=== PATIENT | male | born 1975 | race Caucasian/White ===

== ENCOUNTER 2018-06-27 13:29 | Emergency (ER) | payer BC ==
[~2018-06-27] VITALS: Ht 177.8 cm; Wt 107.5 kg
[~2018-06-27 13:29] MED LIST: XANAX0.5 MG PO
--- OUTSIDE RECORDS SUMMARY | 2018-06-27 13:32 | XMS REPORT | Continuity of Care Document ---
Author Author [facility] Interface Address Unknown Phone Unavailable Problems Problem Status Onset Date Classification Date Reported Comments Source UNK Active 11/11/2015 [facility] UNK Active 11/11/2015 [facility] 780.60 - FEVER NOS Active 07/14/2011 ANAIS Madden Irregular heartbeat Active Problem 12/25/2015 [facility] Renal stone Active Problem 12/25/2015 [facility] Anxiety and depression Active Problem 12/25/2015 [facility] N20.0 Active [facility] Medications Medication Details Route Status Patient Instructions Ordering Provider Order Date Source tramadol hydrochloride 50 MG Oral Tablet 50 mg=1 tab, PO, Q6H, PRN Pain, X 7 day, # 28 tab, 0 Refill(s) Active 11/27/2015 [facility] Naloxone 0.4 mg, Route: IVP, Q2MIN, Dosing Weight 104.591, kg, PRN Narcotic Reversal, Start date: 11/27/15 11:29:00 CDT, Duration: 8 doses or times, Stop date: Limited # of times Inactive 11/27/2015 [facility] Ondansetron 4 mg, Route: IVP, ONCE, Dosing Weight 104.591, kg, PRN Nausea & Vomiting, Start date: 11/27/15 11:29:00 CDT Inactive 11/27/2015 [facility] Fentanyl 25 microgram, Route: IV, Q10Min, Dosing Weight 104.591, kg, PRN Pain Score 6-10, Start date: 11/27/15 11:29:00 CDT, Duration: 30 day, Stop date: 12/27/15 10:28:00 [employer] Inactive 11/27/2015 [facility] Flumazenil 0.2 mg, Route: IVP, PRN, Dosing Weight 104.591, kg, PRN Benzodiazepine Reversal, Initial dose, Start date: 11/27/15 11:29:00 CDT, Duration: 30 day, Stop date: 12/27/15 10:28:00 [employer] Inactive 11/27/2015 [facility] Hydromorphone 0.5 mg, Route: IVP, Q5Min, Dosing Weight 104.591, kg, PRN Pain Score 7-10, Start date: 11/27/15 11:29:00 CDT, Duration: 4 doses or times, Stop date: Limited # of times Inactive 11/27/2015 [facility] Morphine 4 mg, Route: IVP, Q5Min, Dosing Weight 104.591, kg, PRN Pain Score 7-10, Start date: 11/27/15 11:29:00 CDT, Duration: 3 doses or times, Stop date: Limited # of times Inactive 11/27/2015 [facility] Oxycodone 10 mg, Route: PO, Drug form: TAB, Q4H, Dosing Weight 104.591, kg, PRN Pain Score 7-10, Start date: 11/27/15 11:29:00 CDT, Duration: 30 day, Stop date: 12/27/15 11:28:00 [employer] Inactive 11/27/2015 [facility] Tamsulosin hydrochloride 0.4 MG Oral Capsule [Flomax] 0.4 mg=1 cap, PO, Daily, # 7 cap, 0 Refill(s) Active 11/27/2015 [facility] Ciprofloxacin 500 MG Oral Tablet [Cipro] 500 mg=1 tab, PO, Q12H, X 3 day, # 6 tab, 0 Refill(s) Active 11/27/2015 [facility] fentaNYL (ANES) Route: IV, Drug form: INJ, ONCE, Stop date: 11/27/15 10:33:00 CDT Inactive 11/27/2015 [facility] midazolam (ANES) Route: IV, Drug form: SOLN, ONCE, Stop date: 11/27/15 10:33:00 CDT Inactive 11/27/2015 [facility] dexamethasone (ANES) Route: IV, Drug form: INJ, ONCE, Stop date: 11/27/15 10:33:00 CDT Inactive 11/27/2015 [facility] ondansetron (ANES) Route: IV, Drug form: INJ, ONCE, Stop date: 11/27/15 10:33:00 CDT Inactive 11/27/2015 [facility] acetaminophen (ANES) Route: IV, Drug form: INJ, ONCE, Stop date: 11/27/15 10:33:00 CDT Inactive 11/27/2015 [facility] lidocaine (ANES) Route: IV, Drug form: INJ, ONCE, Stop date: 11/27/15 10:33:00 CDT Inactive 11/27/2015 [facility] propofol (ANES) Route: IV, Drug form: INJ, ONCE, Stop date: 11/27/15 10:33:00 CDT Inactive 11/27/2015 [facility] LR 1000 mL INJ (ANES) Route: IV, Total Volume: 1,000, Start date: 11/27/15 9:46:00 CDT, Stop date: 11/27/15 10:46:00 CDT Inactive 11/27/2015 [facility] Calcium Chloride 0.0014 MEQ/ML / Potassium Chloride 0.004 MEQ/ML / Sodium Chloride 0.103 MEQ/ML / Sodium Lactate 0.028 MEQ/ML Injectable Solution 1,000 mL, Rate: 25 ml/hr, Infuse over: 40 hr, Route: IV, Dosing Weight 104.591 kg, Total Volume: 1,000, Start date: 11/27/15 9:03:00 CDT, Duration: 30 day, Stop date: 12/27/15 9:02:00 [employer] Inactive 11/27/2015 [facility] Alprazolam 2 MG Oral Tablet [Xanax] 2 mg=1 tab, PO, Daily, 0 Refill(s) Active 11/19/2015 [facility] Allergies, Adverse Reactions, Alerts Substance Category Reaction Severity Reaction type Status Date Reported Comments Source Immunizations Immunization Date Given Site Status Last Updated Comments Source Results Order Name Results Value Reference Range Date Interpretation Comments Source Abdomen AP DX Abdomen AP DX KUB: There is a 2 mm calyceal stone overlying the lower pole the left kidney. There is no other visible urinary tract calculus. Phleboliths in the pelvis are noted without change compared to 11/27/2015. The abdominal gas pattern is normal. There are no significant osseous abnormalities. There is no other significant change. [id number] 12/22/2015 - - Read by: Luisito Barraza MD Dictated Date/time: 12/22/15 15:55 Electronically Signed by: Luisito Barraza MD 12/22/15 15:56 FINAL REPORT [facility] Abdomen AP DX Abdomen AP DX Patient Name: LUISITO FONTENOT : 1975; Age: 39 years y/o Male MR: [id number] Study: Abdomen AP DX 11/27/2015 9:00 AM CDT Ordering Physician: Phi Fry MD Clinical Indication: Flank Pain; Comparison: None Abdomen one view Punctate calcification overlies left renal lower pole shadow. There appear to be phleboliths within the lower pelvis bilaterally. No other pathologic calcifications are demonstrated radiographically. Nonobstructive bowel gas pattern. Generous amount of colonic stool. No significant osseous abnormality. IMPRESSION: Visualization of punctate calculus overlying the left kidney. SL: [id number] 11/27/2015 - - Read by: Roni Matta MD Dictated Date/time: 11/27/15 08:12 Electronically Signed by: Roni Matta MD 11/27/15 08:13 FINAL REPORT [facility] CHEM PANEL eGFR 106 mL/min/1.73m2 11/19/2015 Result Comment: The eGFR is calculated using the CKD-EPI formula. In most young, healthy individuals the eGFR will be >90 mL/min/1.73m2. The eGFR declines with age. An eGFR of 60-89 may be normal in some populations, particularly the elderly, for whom the CKD-EPI formula has not been extensively validated. Use of the eGFR is not recommended in the following populations: Individuals with unstable creatinine concentrations, including patients and those with serious co-morbid conditions. Patients with extremes in muscle mass or diet. The data above are obtained from the National Kidney Disease Education Program (NKDEP) which additionally recommends that when the eGFR is used in patients with extremes of body mass index for purposes of drug dosing, the eGFR should be multiplied by the estimated BMI. [facility] CHEM PANEL Creatinine Lvl 0.91 mg/dL 0.50 - 1.40 11/19/2015 [facility] CHEM PANEL CO2 28 meq/L 24 - 32 11/19/2015 [facility] CHEM PANEL Sodium Lvl 138 meq/L 135 - 145 11/19/2015 [facility] CHEM PANEL Calcium Lvl 8.9 mg/dL 8.5 - 10.5 11/19/2015 [facility] CHEM PANEL Potassium Lvl 4.3 meq/L 3.5 - 5.1 11/19/2015 [facility] CHEM PANEL Chloride Lvl 103 meq/L 95 - 109 11/19/2015 [facility] CHEM PANEL BUN 15 mg/dL 7 - 11/19/2015 [facility] CHEM PANEL Glucose Lvl 89 mg/dL 70 - 99 11/19/2015 [facility] CHEM PANEL AGAP 11.3 meq/L 10.0 - 20.0 11/19/2015 [facility] HEMATOLOGY Monocytes # 0.7 K/CMM 0.0 - 0.8 11/19/2015 [facility] HEMATOLOGY Lymphocytes # 3.0 K/CMM 1.0 - 5.5 11/19/2015 [facility] HEMATOLOGY Segs-Bands # 4.3 K/CMM 1.5 - 8.1 11/19/2015 [facility] HEMATOLOGY Basophils 0.3 % 0.0 - 1.0 11/19/2015 [facility] HEMATOLOGY Eosinophils # 0.1 K/CMM 0.0 - 0.5 11/19/2015 [facility] HEMATOLOGY Monocytes 8.8 % 2.0 - 12.0 11/19/2015 [facility] HEMATOLOGY Eosinophils 1.0 % 0.0 - 4.0 11/19/2015 [facility] HEMATOLOGY Lymphocytes 37.0 % 20.0 - 40.0 11/19/2015 [facility] HEMATOLOGY Segs 52.9 % 45.0 - 75.0 11/19/2015 [facility] HEMATOLOGY PT 13.1 s 12.0 - 14.7 11/19/2015 [facility] HEMATOLOGY INR 0.97 0.85 - 1.17 11/19/2015 [facility] HEMATOLOGY PTT 34.5 s 22.9 - 35.8 11/19/2015 [facility] HEMATOLOGY MCV 90.6 fL 80.0 - 94.0 11/19/2015 [facility] HEMATOLOGY Hct 47.4 % 42.0 - 54.0 11/19/2015 [facility] HEMATOLOGY Hgb 16.0 g/dL 14.0 - 18.0 11/19/2015 [facility] HEMATOLOGY RBC 5.23 M/CMM 4.70 - 6.10 11/19/2015 [facility] HEMATOLOGY WBC 8.0 K/CMM 3.7 - 10.4 11/19/2015 [facility] HEMATOLOGY MPV 8.8 fL 7.4 - 10.4 11/19/2015 [facility] HEMATOLOGY Platelet 218 K/CMM 133 - 450 11/19/2015 [facility] HEMATOLOGY RDW 12.8 % 11.5 - 14.5 11/19/2015 [facility] HEMATOLOGY MCHC 33.8 g/dL 32.0 - 36.0 11/19/2015 [facility] HEMATOLOGY MCH 30.7 pg 27.0 - 31.0 11/19/2015 [facility] URINE AND STOOL UA Urobilinogen <=1.0 mg/dL 0.1 - 1.0 11/19/2015 [facility] URINE AND STOOL UA Blood Negative (11/19/15 10:09 AM) Negative 11/19/2015 [facility] URINE AND STOOL UA Bili Negative *NA* (11/19/15 10:09 AM) Negative 11/19/2015 [facility] URINE AND STOOL UA Glucose Negative mg/dL Negative mg/dL 11/19/2015 [facility] URINE AND STOOL UA Protein Negative mg/dL Negative mg/dL 11/19/2015 [facility] URINE AND STOOL UA Ketones Negative mg/dL Negative mg/dL 11/19/2015 [facility] URINE AND STOOL UA Mucus Few /LPF None Seen /LPF 11/19/2015 [facility] URINE AND STOOL UA RBC 1 /HPF 0 - 2 11/19/2015 [facility] URINE AND STOOL UA WBC null 0 - 5 11/19/2015 [facility] URINE AND STOOL UA Nitrite Negative (11/19/15 10:09 AM) Negative 11/19/2015 [facility] URINE AND STOOL UA Leuk Est Negative (11/19/15 10:09 AM) Negative 11/19/2015 [facility] URINE AND STOOL UA Sq Epi Occasional /LPF Few /LPF 11/19/2015 [facility] URINE AND STOOL UA pH 5.0 5.0 - 8.0 11/19/2015 [facility] URINE AND STOOL UA Spec Grav 1.020 <=1.030 11/19/2015 [facility] URINE AND STOOL UA Turbidity Clear (11/19/15 10:09 AM) Clear 11/19/2015 [facility] URINE AND STOOL UA Color Yellow *NA* (11/19/15 10:09 AM) Yellow 11/19/2015 [facility] Vital Signs Vital Sign Value Date Comments Source Systolic (mm Hg) 127 11/27/2015 [facility] Diastolic (mm Hg) 78 11/27/2015 [facility] Systolic (mm Hg) 119 11/27/2015 [facility] Diastolic (mm Hg) 79 11/27/2015 [facility] Systolic (mm Hg) 125 11/27/2015 [facility] Diastolic (mm Hg) 81 11/27/2015 [facility] Respitory Rate 13 11/27/2015 [facility] Respitory Rate 16 11/27/2015 [facility] Respitory Rate 8 11/27/2015 [facility] BMI Calculated 33.08 11/19/2015 [facility] Weight 104.591 11/19/2015 [facility] Height 177.8 cm 11/19/2015 [facility] Heart Rate 55 11/19/2015 [facility] Temperature Oral (F) 98 F 11/19/2015 [facility] Encounters Location Location Details Encounter Type Encounter Number Reason For Visit Attending Provider ADM Date DC Date Status Source OD [id number] 780.60 - FEVER NOS LAST ANDREW 07/14/2011 Active ANAIS Madden [facility] Day Surgery [id number] Phi Fry 11/27/2015 11/27/2015 [facility] Outpatient [id number] Phi Lisandra 12/22/2015 12/23/2015 [facility] Procedures Procedure Code Date Perfomer Comments Source Vasectomy [id number] [facility]
--- OUTSIDE RECORDS SUMMARY | 2018-06-27 13:32 | XMS REPORT | Summary of Care ---
Author Author [facility] Organization [facility] Address Unknown Phone Unavailable Encounter HQ Kirtir_alhaji(FIN) [id number] Date(s): 12/22/15 - 12/22/15 [facility] [address] [place] [address]- Discharge Disposition: Home or Self Care Attending Physician: Phi Fry MD Vital Signs No data available for this section Problem List Condition Effective Dates Status Health Status Informant Irregular Active heartbeat(Confirmed) Renal Active stone(Confirmed) Anxiety and Active depression(Confirmed ) Allergies, Adverse Reactions, Alerts Substance Reaction Severity Status NKDA Active Medications No data available for this section Results No data available for this section Immunizations No data available for this section Procedures Procedure Date Related Diagnosis Body Site Vasectomy Social History Social History Type Response Alcohol Current, Frequency: 1-2 times per week. Smoking Status Current some day smoker; Type: Cigarettes; Exposure to Tobacco Smoke None; Cigarette Smoking Last 365 Days Yes; Reg Smoking Cessation Counseling No1 13-4 cigarrettes per week Assessment and Plan No data available for this section
--- OUTSIDE RECORDS SUMMARY | 2018-06-27 13:32 | XMS REPORT | Summary of Care ---
Author Author [facility] Organization [facility] Address Unknown Phone Unavailable Encounter JAYLEN Barajas(DESIRAE) [id number] Date(s): 11/27/15 - 11/27/15 [facility] [address] [place] [address]- [phone] Discharge Disposition: Home or Self Care Attending Physician: Phi Fry MD Referring Physician: Phi Fry MD Vital Signs 1 2 3 Most recent to oldest [Reference Range]: 177.8 cm (11/19/15 9:34 AM) Height 98 DegF (11/19/15 9:34 AM) Temperature Oral [96.4-99.1 DegF] 127/78 mmHg (11/27/15 12:30 PM) 119/79 mmHg (11/27/15 11:30 AM) 125/81 mmHg (11/27/15 11:15 AM) Blood Pressure [90-140/60-90 mmHg] 13 BRMIN *LOW* (11/27/15 11:15 AM) 16 BRMIN (11/27/15 11:00 AM) 8 BRMIN *LOW* (11/27/15 10:45 AM) Respiratory Rate [14-20 BRMIN] 55 bpm *LOW* (11/19/15 9:34 AM) Peripheral Pulse Rate [60-100 bpm] 104.591 kg (11/19/15 9:34 AM) Weight 33.08 m2 (11/19/15 9:34 AM) Body Mass Index Problem List Condition Effective Dates Status Health Status Informant Irregular Active heartbeat(Confirmed) Renal Active stone(Confirmed) Anxiety and Active depression(Confirmed ) Allergies, Adverse Reactions, Alerts Substance Reaction Severity Status NKDA Active Medications acetaminophen (ANES) Route: IV, Drug form: INJ, ONCE, Stop date: 11/27/15 10:33:00 CDT Start Date: 11/27/15 Stop Date: 11/27/15 Status: Completed ANES flumazenil 0.2 mg, Route: IVP, PRN, Dosing Weight 104.591, kg, PRN Benzodiazepine Reversal, Initial dose, Start date: 11/27/15 11:29:00 CDT, Duration: 30 day, Stop date: 02/25/15 10:28:00 [employer]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: 11/27/15 Stop Date: 11/27/15 Status: Discontinued ANES HYDROmorphone 0.5 mg, Route: IVP, Q5Min, Dosing Weight 104.591, kg, PRN Pain Score 7-10, Start date: 11/27/15 11:29:00 CDT, Duration: 4 doses or times, Stop date: Limited # of times Start Date: 11/27/15 Stop Date: 11/27/15 Status: Discontinued ANES morphine Sulfate 4 mg, Route: IVP, Q5Min, Dosing Weight 104.591, kg, PRN Pain Score 7-10, Start d ate: 11/27/15 11:29:00 CDT, Duration: 3 doses or times, Stop date: Limited # of times Start Date: 11/27/15 Stop Date: 11/27/15 Status: Discontinued ANES naloxone 0.4 mg, Route: IVP, Q2MIN, Dosing Weight 104.591, kg, PRN Narcotic Reversal, Sta rt date: 11/27/15 11:29:00 CDT, Duration: 8 doses or times, Stop date: Limited # of times Start Date: 11/27/15 Stop Date: 11/27/15 Status: Discontinued ANES ondansetron 4 mg, Route: IVP, ONCE, Dosing Weight 104.591, kg, PRN Nausea & Vomiting, Start date: 11/27/15 11:29:00 CDT Start Date: 11/27/15 Stop Date: 11/27/15 Status: Discontinued ANES oxyCODONE 10 mg, Route: PO, Drug form: TAB, Q4H, Dosing Weight 104.591, kg, PRN Pain Score 7-10, Start date: 11/27/15 11:29:00 CDT, Duration: 30 day, Stop date: 12/27/15 11:28:00 [employer]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: 11/27/15 Stop Date: 11/27/15 Status: Discontinued Cipro 500 mg oral tablet 500 mg=1 tab, PO, Q12H, X 3 day, # 6 tab, 0 Refill(s) Start Date: 11/27/15 Stop Date: 11/30/15 Status: Ordered dexamethasone (ANES) Route: IV, Drug form: INJ, ONCE, Stop date: 11/27/15 10:33:00 CDT Start Date: 11/27/15 Stop Date: 11/27/15 Status: Completed fentaNYL 25 microgram, Route: IV, Q10Min, Dosing Weight 104.591, kg, PRN Pain Score 6-10, Start date: 11/27/15 11:29:00 CDT, Duration: 30 day, Stop date: 12/27/15 10:28: 00 [employer]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: 11/27/15 Stop Date: 11/27/15 Status: Discontinued fentaNYL (ANES) Route: IV, Drug form: INJ, ONCE, Stop date: 11/27/15 10:33:00 CDT Start Date: 11/27/15 Stop Date: 11/27/15 Status: Completed Flomax 0.4 mg oral capsule 0.4 mg=1 cap, PO, Daily, # 7 cap, 0 Refill(s) Start Date: 11/27/15 Stop Date: 12/04/15 Status: Ordered Lactated Ringers Injection IV 1000 mL 1,000 mL, Rate: 25 ml/hr, Infuse over: 40 hr, Route: IV, Dosing Weight 104.591 k g, Total Volume: 1,000, Start date: 11/27/15 9:03:00 CDT, Duration: 30 day, Stop date: 12/27/15 9:02:00 [employer]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: 11/27/15 Stop Date: 11/27/15 Status: Discontinued lidocaine (ANES) Route: IV, Drug form: INJ, ONCE, Stop date: 11/27/15 10:33:00 CDT Start Date: 11/27/15 Stop Date: 11/27/15 Status: Completed LR 1000 mL INJ (ANES) Route: IV, Total Volume: 1,000, Start date: 11/27/15 9:46:00 CDT, Stop date: 09/04 10:46:00 CDT Start Date: 11/27/15 Stop Date: 11/27/15 Status: Completed midazolam (ANES) Route: IV, Drug form: SOLN, ONCE, Stop date: 11/27/15 10:33:00 CDT Start Date: 11/27/15 Stop Date: 11/27/15 Status: Completed ondansetron (ANES) Route: IV, Drug form: INJ, ONCE, Stop date: 11/27/15 10:33:00 CDT Start Date: 11/27/15 Stop Date: 11/27/15 Status: Completed propofol (ANES) Route: IV, Drug form: INJ, ONCE, Stop date: 11/27/15 10:33:00 CDT Start Date: 11/27/15 Stop Date: 11/27/15 Status: Completed tramadol 50 mg oral tablet 50 mg=1 tab, PO, Q6H, PRN Pain, X 7 day, # 28 tab, 0 Refill(s) Start Date: 11/27/15 Stop Date: 12/04/15 Status: Ordered Xanax 2 mg oral tablet 2 mg=1 tab, PO, Daily, 0 Refill(s) Start Date: 11/19/15 Status: Ordered Results ELECTROLYTES Most recent to 1 oldest [Reference Range]: Sodium Lvl [135-145 138 mEq/L mEq/L] (11/19/15 10:09 AM) Potassium Lvl 4.3 mEq/L [3.5-5.1 mEq/L] (11/19/15 10:09 AM) Chloride Lvl [95-109 103 mEq/L mEq/L] (11/19/15 10:09 AM) CO2 [24-32 mEq/L] 28 mEq/L (11/19/15 10:09 AM) AGAP [10.0-20.0 11.3 mEq/L mEq/L] (11/19/15 10:09 AM) CHEM PANEL Most recent to 1 oldest [Reference Range]: Creatinine Lvl 0.91 mg/dL [0.50-1.40 mg/dL] (11/19/15 10:09 AM) eGFR 106 mL/min/1.73m2 1 *NA* (11/19/15 10:09 AM) BUN [7-22 mg/dL] 15 mg/dL (11/19/15 10:09 AM) Glucose Lvl [70-99 89 mg/dL mg/dL] (11/19/15 10:09 AM) Calcium Lvl 8.9 mg/dL [8.5-10.5 mg/dL] (11/19/15 10:09 AM) 1Result Comment: The eGFR is calculated using the [...] from the National Kidney Disease Education Program ( NKDEP) which additionally recommends that when the eGFR is used in patients with extremes of body mass index for purposes of drug dosing, the eGFR should be mul tiplied by the estimated BMI. URINE AND STOOL Most recent to 1 oldest [Reference Range]: UA Turbidity [Clear] Clear (11/19/15 10:09 AM) UA Color [Yellow] Yellow *NA* (11/19/15 10:09 AM) UA pH [5.0-8.0] 5.0 (11/19/15 10:09 AM) UA Spec Grav 1.020 [<=1.030] (11/19/15 10:09 AM) UA Glucose [Negative Negative mg/dL mg/dL] *NA* (11/19/15 10:09 AM) UA Blood [Negative] Negative (11/19/15 10:09 AM) UA Ketones [Negative Negative mg/dL mg/dL] *NA* (11/19/15 10:09 AM) UA Protein [Negative Negative mg/dL mg/dL] (11/19/15 10:09 AM) UA Urobilinogen <=1.0 mg/dL [0.1-1.0 mg/dL] *NA* (11/19/15 10:09 AM) UA Bili [Negative] Negative *NA* (11/19/15 10:09 AM) UA Leuk Est Negative [Negative] (11/19/15 10:09 AM) UA Nitrite Negative [Negative] (11/19/15 10:09 AM) UA WBC [0-5 /HPF] <1 /HPF (11/19/15 10:09 AM) UA RBC [0-2 /HPF] 1 /HPF (11/19/15 10:09 AM) UA Sq Epi [Few /LPF] Occasional /LPF *NA* (11/19/15 10:09 AM) UA Mucus [None Seen Few /LPF /LPF] *NA* (11/19/15 10:09 AM) HEMATOLOGY Most recent to 1 oldest [Reference Range]: WBC [3.7-10.4 K/CMM] 8.0 K/CMM (11/19/15 10:09 AM) RBC [4.70-6.10 5.23 M/CMM M/CMM] (11/19/15 10:09 AM) Hgb [14.0-18.0 g/dL] 16.0 g/dL (11/19/15 10:09 AM) Hct [42.0-54.0 %] 47.4 % (11/19/15 10:09 AM) MCV [80.0-94.0 fL] 90.6 fL (11/19/15 10:09 AM) MCH [27.0-31.0 pg] 30.7 pg (11/19/15 10:09 AM) MCHC [32.0-36.0 33.8 g/dL g/dL] (11/19/15 10:09 AM) RDW [11.5-14.5 %] 12.8 % (11/19/15 10:09 AM) Platelet [133-450 218 K/CMM K/CMM] (11/19/15 10:09 AM) MPV [7.4-10.4 fL] 8.8 fL (11/19/15 10:09 AM) Segs [45.0-75.0 %] 52.9 % (11/19/15 10:09 AM) Lymphocytes 37.0 % [20.0-40.0 %] (11/19/15 10:09 AM) Monocytes [2.0-12.0 8.8 % %] (11/19/15 10:09 AM) Eosinophils [0.0-4.0 1.0 % %] (11/19/15 10:09 AM) Basophils [0.0-1.0 0.3 % %] (11/19/15 10:09 AM) Segs-Bands # 4.3 K/CMM [1.5-8.1 K/CMM] (11/19/15 10:09 AM) Lymphocytes # 3.0 K/CMM [1.0-5.5 K/CMM] (11/19/15 10:09 AM) Monocytes # [0.0-0.8 0.7 K/CMM K/CMM] (11/19/15 10:09 AM) Eosinophils # 0.1 K/CMM [0.0-0.5 K/CMM] (11/19/15 10:09 AM) PT [12.0-14.7 13.1 seconds seconds] (11/19/15 10:09 AM) INR [0.85-1.17] 0.97 (11/19/15 10:09 AM) PTT [22.9-35.8 34.5 seconds seconds] (11/19/15 10:09 AM) Immunizations No data available for this section [...]
--- OUTSIDE RECORDS SUMMARY | 2018-06-27 13:32 | XMS REPORT ---
Author Author [facility] Address Unknown Phone Unavailable Care Team Providers Care Security Representative Name Role Phone Unavailable Unavailable Payers Payer Name Policy Type Policy Number Effective Date Expiration Date Problems This patient has no known problems. Allergies, Adverse Reactions, Alerts Allergy Name Allergy Type Status Severity Reaction(s) Onset Date Inactive Date Treating Clinician Comments No Known Allergies DA Active U 2011-07-15 00:00:00 Medications This patient has no known medications.
[2018-06-27] MEDS ORDERED: SODIUM CHLORIDE 0.9% 1000ML 1,000 ML IV STA (14:43)
[2018-06-27] MEDS ORDERED: AMIODARONE HCL 150 MG/100 ML BAG IV ONE (14:45)
[2018-06-27] MEDS ORDERED: ENOXAPARIN SODIUM INJ 100 MG/ML SYR SC SCH (15:00)
[2018-06-27 15:07] LABS: BASOPHILS % 0.4 % (0.0-1.0); EOSINOPHILS # (AUTO) 0.1 (0.0-0.4); EOSINOPHILS % 1.3 % (0.0-6.0); HEMATOCRIT 47.5 % (38.2-49.6); HEMOGLOBIN 16.6 g/dL (14.0-18.0); MEAN CORPUSCULAR HEMOGLOBIN 31.8 pg (28-32); MEAN CORPUSCULAR HGB CONC 34.9 g/dL (31-35); MONOCYTES # (AUTO) 0.8 (0.2-0.8); MONOCYTES % 7.9 % (4.4-11.3); NEUTROPHILS % 59.9 % (38.7-80.0); PLATELET COUNT 305 x10e3/uL (140-360); RED BLOOD COUNT 5.22 x10e6/uL (4.3-5.7); RED CELL DISTRIBUTION WIDTH 12.1 % (11.7-14.4)
[2018-06-27 15:11] LABS: INR 0.88; PROTHROMBIN TIME 12.4 seconds (11.9-14.5)
[2018-06-27 15:12] LABS: PARTIAL THROMBOPLASTIN TIME 33.2 seconds (23.8-35.5)
[2018-06-27 15:19] LABS: ALANINE AMINOTRANSFERASE 37 IU/L (0-55); ALBUMIN 4.3 g/dL (3.5-5.0); ALBUMIN/GLOBULIN RATIO 1.2 (0.8-2.0); ALKALINE PHOSPHATASE 84 IU/L (40-150); ANION GAP 13.1 mmol/L (8-16); BLOOD UREA NITROGEN 12 mg/dL (7-26); BUN/CREATININE RATIO 15 (6-25); CALCIUM 10.2 mg/dL (8.4-10.2); CARBON DIOXIDE 27 mmol/L (22-29); CHLORIDE 105 mmol/L (98-107); CREATINE KINASE 114 IU/L (30-200); CREATININE, SERUM 0.82 mg/dL (0.72-1.25); EST GLOMERULAR FILTRATION RATE > 60 ML/MIN (60-); GLUCOSE 94 mg/dL (74-118); POTASSIUM 4.1 mmol/L (3.5-5.1); SODIUM 141 mmol/L (136-145)
[2018-06-27] MEDS ORDERED: AMIODARONE HCL 100 ML IV ONE (15:30)
[2018-06-27 15:54] LABS: THYROID STIMULATING HORMONE 4.387 uIU/mL (0.350-4.940)
[2018-06-27 15:57] LABS: AMPHETAMINES SCREEN,URINE NEGATIVE (NEGATIVE); BENZODIAZEPINES SCREEN,URINE NEGATIVE (NEGATIVE); BILIRUBIN,URINE NEGATIVE (NEGATIVE); CLARITY,URINE SL CLOUDY (CLEAR); COLOR,URINE YELLOW (YELLOW); KETONES,URINE NEGATIVE (NEGATIVE); LEUKOCYTE ESTERASE ,URINE NEGATIVE (NEGATIVE); NITRITE,URINE NEGATIVE (NEGATIVE); PHENCYCLIDINE SCREEN,URINE NEGATIVE (NEGATIVE); PROTEIN,URINE DIPSTICK NEGATIVE (NEGATIVE); URINE UROBILINOGEN 0.2 mg/dL (0.2 - 1)
[2018-06-27 16:10] LABS: RBC,URINE 0-5 /HPF (0-5)
--- NOTE | 2018-06-27 16:13 | Diagnostic Imaging Report ---
EXAMINATION: CHEST SINGLE (PORTABLE) INDICATION: Shortness of breath. COMPARISON: None FINDINGS: TUBES and LINES: None. LUNGS: Lungs are moderately inflated. There is no evidence of pneumonia or pulmonary edema. PLEURA: No pleural effusion or pneumothorax. HEART AND MEDIASTINUM: The cardiomediastinal silhouette is unremarkable. BONES AND SOFT TISSUES: No acute osseous abnormality. There is a deformity of the right mid clavicle, suggestive of prior trauma. UPPER ABDOMEN: No free air under the diaphragm. IMPRESSION: No acute radiographic abnormality. Signed by: Dr. Stephen Wiggins MD on 06/27/2018 4:10 PM
== END 2018-06-27 17:00 | disposition home or self-care (01) ==
LOC: ER 13:29
DX: R00.2 Palpitations (principal); R42 Dizziness and giddiness; I48.0 Paroxysmal atrial fibrillation
CPT/HCPCS: 36415; 71045; 80053; 80307; 81001; 82550; 82553; 83880; 84443; 84484; 85025; 85379; 85610; 85730; 93005; 99284; J1650; J7030

== ENCOUNTER 2018-11-10 09:48 | Inpatient (IN) | payer BC ==
[~2018-11-10] VITALS: Ht 177.8 cm; Wt 106.2 kg
[2018-11-10] MEDS: SODIUM CHLORIDE 0.9% 1000ML 1,000 ML IV SCH ×2 (00:21→14:39)
--- OUTSIDE RECORDS SUMMARY | 2018-11-10 09:51 | XMS REPORT | Continuity of Care Document ---
Author Author [facility] Organization [facility] Address Unknown Phone Unavailable Care Team Providers Care Vault Manager Name Role Phone [employer] Information [place] Unavailable Unavailable Problems Problem Status Onset Date Classification Date Reported Comments Source UNK Active 11/11/2015 [facility] 780.60 - FEVER NOS Active 07/14/2011 ANA[facility] Madden Irregular heart beat (finding) Active Problem 12/25/2015 [facility] Kidney stone (disorder) Active Problem 12/25/2015 [facility] Mixed anxiety and depressive disorder (disorder) Active Problem 12/25/2015 [facility] N20.0 Active [facility] Medications Medication Details Route Status Patient Instructions Ordering Provider Order Date Source tramadol hydrochloride 50 MG Oral Tablet 50 mg=1 tab, PO, Q6H, PRN Pain, X 7 day, # 28 tab, 0 Refill(s) Active 11/27/2015 [facility] Naloxone 0.4 mg, Route: IVP, Q2MIN, Dosing Weight 104.591, kg, PRN Narcotic Reversal, Start date: 11/27/15 11:29:00 CDT, Duration: 8 doses or times, Stop date: Limited # of times Inactive 11/27/2015 [facility] Ondansetron 4 mg, Route: IVP, ONCE, Dosing Weight 104.591, kg, PRN Nausea & Vomiting, Start date: 11/27/15 11:29:00 CDT Inactive 11/27/2015 [facility] Fentanyl 25 microgram, Route: IV, Q10Min, Dosing Weight 104.591, kg, PRN Pain Score 6-10, Start date: 11/27/15 11:29:00 CDT, Duration: 30 day, Stop date: 12/27/15 10:28:00 LEAD GENERATION REPRESENTATIVE Inactive 11/27/2015 [facility] Flumazenil 0.2 mg, Route: IVP, PRN, Dosing Weight 104.591, kg, PRN Benzodiazepine Reversal, Initial dose, Start date: 11/27/15 11:29:00 CDT, Duration: 30 day, Stop date: 12/27/15 10:28:00 LEAD GENERATION REPRESENTATIVE Inactive 11/27/2015 [facility] Hydromorphone 0.5 mg, Route: IVP, Q5Min, Dosing Weight 104.591, kg, PRN Pain Score 7-10, Start date: 11/27/15 11:29:00 CDT, Duration: 4 doses or times, Stop date: Limited # of times Inactive 11/27/2015 [facility] Morphine 4 mg, Route: IVP, Q5Min, Dosing Weight 104.591, kg, PRN Pain Score 7-10, Start date: 11/27/15 11:29:00 CDT, Duration: 3 doses or times, Stop date: Limited # of times Inactive 11/27/2015 [facility] Oxycodone 10 mg, Route: PO, Drug form: TAB, Q4H, Dosing Weight 104.591, kg, PRN Pain Score 7-10, Start date: 11/27/15 11:29:00 CDT, Duration: 30 day, Stop date: 12/27/15 11:28:00 LEAD GENERATION REPRESENTATIVE Inactive 11/27/2015 [facility] Tamsulosin hydrochloride 0.4 MG Oral Capsule [Flomax] 0.4 mg=1 cap, PO, Daily, # 7 cap, 0 Refill(s) Active 11/27/2015 [facility] Ciprofloxacin 500 MG Oral Tablet [Cipro] 500 mg=1 tab, PO, Q12H, X 3 day, # 6 tab, 0 Refill(s) Active 11/27/2015 [facility] fentaNYL (ANES) Route: IV, Drug form: INJ, ONCE, Stop date: 11/27/15 10:33:00 CDT Inactive 11/27/2015 [facility] midazolam (ANES) Route: IV, Drug form: SOLN, ONCE, Stop date: 11/27/15 10:33:00 CDT Inactive 11/27/2015 [facility] dexamethasone (ANES) Route: IV, Drug form: INJ, ONCE, Stop date: 11/27/15 10:33:00 CDT Inactive 11/27/2015 [facility] ondansetron (ANES) Route: IV, Drug form: INJ, ONCE, Stop date: 11/27/15 10:33:00 CDT Inactive 11/27/2015 [facility] acetaminophen (ANES) Route: IV, Drug form: INJ, ONCE, Stop date: 11/27/15 10:33:00 CDT Inactive 11/27/2015 [facility] lidocaine (ANES) Route: IV, Drug form: INJ, ONCE, Stop date: 11/27/15 10:33:00 CDT Inactive 11/27/2015 [facility] propofol (ANES) Route: IV, Drug form: INJ, ONCE, Stop date: 11/27/15 10:33:00 CDT Inactive 11/27/2015 [facility] LR 1000 mL INJ (ANES) Route: IV, Total Volume: 1,000, Start date: 11/27/15 9:46:00 CDT, Stop date: 11/27/15 10:46:00 CDT Inactive 11/27/2015 [facility] Calcium Chloride 0.0014 MEQ/ML / Potassium Chloride 0.004 MEQ/ML / Sodium Chloride 0.103 MEQ/ML / Sodium Lactate 0.028 MEQ/ML Injectable Solution 1,000 mL, Rate: 25 ml/hr, Infuse over: 40 hr, Route: IV, Dosing Weight 104.591 kg, Total Volume: 1,000, Start date: 11/27/15 9:03:00 CDT, Duration: 30 day, Stop date: 12/27/15 9:02:00 LEAD GENERATION REPRESENTATIVE Inactive 11/27/2015 [facility] Alprazolam 2 MG Oral Tablet [Xanax] 2 mg=1 tab, PO, Daily, 0 Refill(s) Active 11/19/2015 [facility] Allergies, Adverse Reactions, Alerts No Known Medication Allergies Immunizations No Data Provided for This Section Results Order Name Results Value Reference Range Date Interpretation Comments Source CHEM PANEL eGFR 106 11/19/2015 Result Comment: The eGFR is calculated [...] should be multiplied by the estimated BMI. [facility] CHEM PANEL Creatinine Lvl 0.91 0.50 - 1.40 11/19/2015 [facility] CHEM PANEL CO2 28 24 - 32 11/19/2015 [facility] CHEM PANEL Sodium Lvl 138 135 - 145 11/19/2015 [facility] CHEM PANEL Calcium Lvl 8.9 8.5 - 10.5 11/19/2015 [facility] CHEM PANEL Potassium Lvl 4.3 3.5 - 5.1 11/19/2015 [facility] CHEM PANEL Chloride Lvl 103 95 - 109 11/19/2015 [facility] CHEM PANEL BUN 15 7 - 22 11/19/2015 [facility] CHEM PANEL Glucose Lvl 89 70 - 99 11/19/2015 [facility] CHEM PANEL AGAP 11.3 10.0 - 20.0 11/19/2015 [facility] HEMATOLOGY Monocytes # 0.7 0.0 - 0.8 11/19/2015 [facility] HEMATOLOGY Lymphocytes # 3.0 1.0 - 5.5 11/19/2015 [facility] HEMATOLOGY Segs-Bands # 4.3 1.5 - 8.1 11/19/2015 [facility] HEMATOLOGY Basophils 0.3 0.0 - 1.0 11/19/2015 [facility] HEMATOLOGY Eosinophils # 0.1 0.0 - 0.5 11/19/2015 [facility] HEMATOLOGY Monocytes 8.8 2.0 - 12.0 11/19/2015 [facility] HEMATOLOGY Eosinophils 1.0 0.0 - 4.0 11/19/2015 [facility] HEMATOLOGY Lymphocytes 37.0 20.0 - 40.0 11/19/2015 [facility] HEMATOLOGY Segs 52.9 45.0 - 75.0 11/19/2015 [facility] HEMATOLOGY PT 13.1 12.0 - 14.7 11/19/2015 [facility] HEMATOLOGY INR 0.97 0.85 - 1.17 11/19/2015 [facility] HEMATOLOGY PTT 34.5 22.9 - 35.8 11/19/2015 [facility] HEMATOLOGY MCV 90.6 80.0 - 94.0 11/19/2015 [facility] HEMATOLOGY Hct 47.4 42.0 - 54.0 11/19/2015 [facility] HEMATOLOGY Hgb 16.0 14.0 - 18.0 11/19/2015 [facility] HEMATOLOGY RBC 5.23 4.70 - 6.10 11/19/2015 [facility] HEMATOLOGY WBC 8.0 3.7 - 10.4 11/19/2015 [facility] HEMATOLOGY MPV 8.8 7.4 - 10.4 11/19/2015 [facility] HEMATOLOGY Platelet 218 133 - 450 11/19/2015 [facility] HEMATOLOGY RDW 12.8 11.5 - 14.5 11/19/2015 [facility] HEMATOLOGY MCHC 33.8 32.0 - 36.0 11/19/2015 [facility] HEMATOLOGY MCH 30.7 27.0 - 31.0 11/19/2015 [facility] URINE AND STOOL UA Urobilinogen <=1.0 mg/dL 0.1 - 1.0 11/19/2015 [facility] URINE AND STOOL UA Blood Negative (11/19/15 10:09 AM) Negative 11/19/2015 [facility] URINE AND STOOL UA Bili Negative *NA* (11/19/15 10:09 AM) Negative 11/19/2015 [facility] URINE AND STOOL UA Glucose Negative mg/dL Negative mg/dL 11/19/2015 [facility] URINE AND STOOL UA Protein Negative mg/dL Negative mg/dL 11/19/2015 [facility] URINE AND STOOL UA Ketones Negative mg/dL Negative mg/dL 11/19/2015 [facility] URINE AND STOOL UA Mucus Few /LPF None Seen /LPF 11/19/2015 [facility] URINE AND STOOL UA RBC 1 0 - 2 11/19/2015 [facility] URINE AND STOOL UA WBC <1 0 - 5 11/19/2015 [facility] URINE AND STOOL UA Nitrite Negative (11/19/15 10:09 AM) Negative 11/19/2015 [facility] URINE AND STOOL UA Leuk Est Negative (11/19/15 10:09 AM) Negative 11/19/2015 [facility] URINE AND STOOL UA Sq Epi Occasional /LPF Few /LPF 11/19/2015 [facility] URINE AND STOOL UA pH 5.0 5.0 - 8.0 11/19/2015 [facility] URINE AND STOOL UA Spec Grav 1.020 <=1.030 11/19/2015 [facility] URINE AND STOOL UA Turbidity Clear (11/19/15 10:09 AM) Clear 11/19/2015 [facility] URINE AND STOOL UA Color Yellow *NA* (11/19/15 10:09 AM) Yellow 11/19/2015 [facility] Pathology Reports No Data Provided for This Section Diagnostic Reports Report Value Date Source Abdomen AP DX KUB: There is a 2 mm calyceal stone overlying the lower pole the left kidney. There is no other visible urinary tract calculus. Phleboliths in the pelvis are noted without change compared to 11/27/2015. The abdominal gas pattern is normal. There are no significant osseous abnormalities. There is no other significant change. [id number] 12/22/2015 [facility] Abdomen AP DX Patient Name: LUISITO FONTENOT : 1975; Age: 39 years y/o Male MR: [id number] Study: Abdomen AP DX 11/27/2015 9:00 AM [...] punctate calculus overlying the left kidney. SL: [id number] 11/27/2015 [facility] Consultation Notes No Data Provided for This Section Discharge Summaries No Data Provided for This Section History and Physicals No Data Provided for This Section Vital Signs Vital Sign Value Date Comments Source Systolic (mm Hg) 127 11/27/2015 [facility] Diastolic (mm Hg) 78 11/27/2015 [facility] Systolic (mm Hg) 119 11/27/2015 [facility] Diastolic (mm Hg) 79 11/27/2015 [facility] Systolic (mm Hg) 125 11/27/2015 [facility] Diastolic (mm Hg) 81 11/27/2015 [facility] Respitory Rate 13 11/27/2015 [facility] Respitory Rate 16 11/27/2015 [facility] Respitory Rate 8 11/27/2015 [facility] BMI Calculated 33.08 11/19/2015 [facility] Weight 104.591 11/19/2015 [facility] Height 177.8 cm 11/19/2015 [facility] Heart Rate 55 11/19/2015 [facility] Temperature Oral (F) 98 F 11/19/2015 [facility] Encounters Location Location Details Encounter Type Encounter Number Reason For Visit Attending Provider ADM Date DC Date Status Source OD [id number] 780.60 - FEVER NOS LAST MORALES 07/14/[address] [id number]2015 [facility] [id number] [facility] 12/22/2015 12/23/2015 [facility] Procedures Procedure Code Date Perfomer Comments Source Vasectomy [id number] [facility] Assessment and Plan No Data Provided for This Section Plan of Care No Data Provided for This Section Social History Social History Date Source Social History TypeResponse Alcohol Current, Frequency: 1-2 times per week. Smoking Status Current some day smoker; Type: Cigarettes; Exposure to Tobacco Smoke None; Cigarette Smoking Last 365 Days Yes; Reg Smoking Cessation Counseling No1 13-4 cigarrettes per week 11/19/2015 [facility] Family History No Data Provided for This Section Advance Directives No Data Provided for This Section Functional Status No Data Provided for This Section
[2018-11-10] MEDS ORDERED: SODIUM CHLORIDE 0.9% 1000ML 1,000 ML IV STA ×2 (10:04→12:14)
[2018-11-10 10:25] LABS: BASOPHILS % 0.4 % (0.0-1.0); EOSINOPHILS # (AUTO) 0.1 (0.0-0.4); EOSINOPHILS % 1.1 % (0.0-6.0); HEMATOCRIT 50.1 % (38.2-49.6); HEMOGLOBIN 17.4 g/dL (14.0-18.0); LYMPHOCYTES # (AUTO) 2.3 (1.0-3.2); LYMPHOCYTES % 21.8 % (18.0-39.1); MEAN CORPUSCULAR HEMOGLOBIN 31.7 pg (28-32); MEAN CORPUSCULAR HGB CONC 34.7 g/dL (31-35); MEAN CORPUSCULAR VOLUME 91.3 fL (81-99); MONOCYTES # (AUTO) 0.8 (0.2-0.8); MONOCYTES % 7.9 % (4.4-11.3); NEUTROPHILS # (AUTO) 7.2 (2.1-6.9); NEUTROPHILS % 68.3 % (38.7-80.0); PLATELET COUNT 277 x10e3/uL (140-360); RED BLOOD COUNT 5.49 x10e6/uL (4.3-5.7); RED CELL DISTRIBUTION WIDTH 12.2 % (11.7-14.4)
[2018-11-10] MEDS: METOPROLOL TARTRATE INJ 1 MG/ML VIAL IV SCH ×2 (10:26→11:24)
[2018-11-10] MEDS ORDERED: ENOXAPARIN SODIUM INJ 100 MG/ML SYR SC SCH (10:30)
[2018-11-10] MEDS ORDERED: ASPIRIN 81 MG CHEW TAB PO ONE (10:30)
[2018-11-10 10:38] LABS: INR 0.96; PARTIAL THROMBOPLASTIN TIME 28.6 seconds (23.8-35.5); PROTHROMBIN TIME 13.3 seconds (11.9-14.5)
[2018-11-10 10:45] LABS: ALANINE AMINOTRANSFERASE 30 IU/L (0-55); ALBUMIN 4.3 g/dL (3.5-5.0); ALBUMIN/GLOBULIN RATIO 1.2 (0.8-2.0); ALKALINE PHOSPHATASE 75 IU/L (40-150); ANION GAP 11.3 mmol/L (8-16); BLOOD UREA NITROGEN 7 mg/dL (7-26); BUN/CREATININE RATIO 6 (6-25); CALCIUM 9.7 mg/dL (8.4-10.2); CARBON DIOXIDE 30 mmol/L (22-29); CHLORIDE 102 mmol/L (98-107); CREATINE KINASE 87 IU/L (30-200); CREATININE, SERUM 1.08 mg/dL (0.72-1.25); EST GLOMERULAR FILTRATION RATE > 60 ML/MIN (60-); GLUCOSE 89 mg/dL (74-118); MAGNESIUM 2.2 MG/DL (1.3-2.1); POTASSIUM 4.3 mmol/L (3.5-5.1); SODIUM 139 mmol/L (136-145)
--- NOTE | 2018-11-10 10:47 | Diagnostic Imaging Report ---
Examination: Single AP view of the chest. COMPARISON: None. INDICATION: Atrial fibrillation DISCUSSION: Lines/tubes: None. Lungs: The lungs are well inflated and clear. There is no evidence of pneumonia or pulmonary edema. Pleura: There is no pleural effusion or pneumothorax. Heart and mediastinum: The heart and the mediastinum are unremarkable. Bones and soft tissues: No acute bony abnormalities. Posttraumatic deformity of the midshaft of the right clavicle. IMPRESSION: 1. No acute cardiopulmonary abnormalities. Signed by: Dr. Greg Garcia M.D. on 11/10/2018 10:44 AM
[2018-11-10 11:06] LABS: THYROID STIMULATING HORMONE 4.275 uIU/mL (0.350-4.940)
--- NOTE | 2018-11-10 11:08 | NUR ---
REPORT GIVEN TO GRACE TO.
--- NOTE | 2018-11-10 11:08 | NUR ---
REC'D REPORT IN WALKING ROUNDS WITH GRACE LIN FOR CONTINUITY OF CARE
[2018-11-10 11:22] LABS: AMPHETAMINES SCREEN,URINE NEGATIVE (NEGATIVE); BENZODIAZEPINES SCREEN,URINE NEGATIVE (NEGATIVE); PHENCYCLIDINE SCREEN,URINE NEGATIVE (NEGATIVE)
--- NOTE | 2018-11-10 12:12 | NUR ---
DR. LEZAMA IN TO SEE THE PATIENT AND HAS UPDATED HIM ON POC/PENDING ADMIT. WAITING FOR DR. MELO AT THIS TIME
[2018-11-10] MEDS ORDERED: SODIUM CHLORIDE 0.9% 1000ML 1,000 ML ONE (12:19)
--- NOTE | 2018-11-10 12:21 | NUR ---
2ND IV LINE BEING PLACED. ADDITIONAL LITER OF NORMAL SALINE INFUSING
[2018-11-10] MEDS ORDERED: AMIODARONE HCL 360MG 200 ML IV SCH ×2 (12:30→18:00)
--- NOTE | 2018-11-10 12:30 | NUR ---
DR. MELO ROUNDING ON PT AT THIS TIME.
--- OUTSIDE RECORDS SUMMARY | 2018-11-10 12:35 | XMS REPORT | Continuity of Care Document ---
Author Author [facility] Organization [facility] Address Unknown Phone Unavailable Care Team Providers Care Digital Business Analyst Name Role Phone [employer] Information [place] Unavailable Unavailable Problems Problem Status Onset Date Classification Date Reported Comments Source UNK Active 11/11/2015 [facility] 780.60 - FEVER NOS Active 07/14/2011 ANAIS Madden Irregular heart beat (finding) Active Problem 12/25/2015 [facility] Kidney stone (disorder) Active Problem 12/25/2015 [facility] Mixed anxiety and depressive disorder (disorder) Active Problem 12/25/2015 [facility] N20.0 Active [facility] Medications Medication Details Route Status Patient Instructions Ordering Provider Order Date Source tramadol hydrochloride 50 MG Oral Tablet 50 mg=1 tab, PO, Q6H, PRN Pain, X 7 day, # 28 tab, 0 Refill(s) Active 11/27/2015 [facility] Naloxone 0.4 mg, Route: IVP, Q2MIN, Dosing Weight 104.591, kg, PRN Narcotic Reversal, Start date: 11/27/15 11:29:00 CDT, Duration: 8 doses or times, Stop date: Limited # of times Inactive 11/27/2015 [facility] Ondansetron 4 mg, Route: IVP, ONCE, Dosing Weight 104.591, kg, PRN Nausea & Vomiting, Start date: 11/27/15 11:29:00 CDT Inactive 11/27/2015 [facility] Fentanyl 25 microgram, Route: IV, Q10Min, Dosing Weight 104.591, kg, PRN Pain Score 6-10, Start date: 11/27/15 11:29:00 CDT, Duration: 30 day, Stop date: 12/27/15 10:28:00 MANUFACTURING ASSISTANT Inactive 11/27/2015 [facility] Flumazenil 0.2 mg, Route: IVP, PRN, Dosing Weight 104.591, kg, PRN Benzodiazepine Reversal, Initial dose, Start date: 11/27/15 11:29:00 CDT, Duration: 30 day, Stop date: 12/27/15 10:28:00 MANUFACTURING ASSISTANT Inactive 11/27/2015 [facility] Hydromorphone 0.5 mg, Route: IVP, Q5Min, Dosing Weight 104.591, kg, PRN Pain Score 7-10, Start date: 11/27/15 11:29:00 CDT, Duration: 4 doses or times, Stop date: Limited # of times Inactive 11/27/2015 [facility] Morphine 4 mg, Route: IVP, Q5Min, Dosing Weight 104.591, kg, PRN Pain Score 7-10, Start date: 11/27/15 11:29:00 CDT, Duration: 3 doses or times, Stop date: Limited # of times Inactive 11/27/2015 [facility] Oxycodone 10 mg, Route: PO, Drug form: TAB, Q4H, Dosing Weight 104.591, kg, PRN Pain Score 7-10, Start date: 11/27/15 11:29:00 CDT, Duration: 30 day, Stop date: 12/27/15 11:28:00 MANUFACTURING ASSISTANT Inactive 11/27/2015 [facility] Tamsulosin hydrochloride 0.4 MG Oral Capsule [Flomax] 0.4 mg=1 cap, PO, Daily, # 7 cap, 0 Refill(s) Active 11/27/2015 [facility] Ciprofloxacin 500 MG Oral Tablet [Cipro] 500 mg=1 tab, PO, Q12H, X 3 day, # 6 tab, 0 Refill(s) Active 11/27/2015 [facility] fentaNYL (ANES) Route: IV, Drug form: INJ, ONCE, Stop date: 11/27/15 10:33:00 CDT Inactive 11/27/2015 [facility] midazolam (ANES) Route: IV, Drug form: SOLN, ONCE, Stop date: 11/27/15 10:33:00 CDT Inactive 11/27/2015 [facility] dexamethasone (ANES) Route: IV, Drug form: INJ, ONCE, Stop date: 11/27/15 10:33:00 CDT Inactive 11/27/2015 [facility] ondansetron (ANES) Route: IV, Drug form: INJ, ONCE, Stop date: 11/27/15 10:33:00 CDT Inactive 11/27/2015 [facility] acetaminophen (ANES) Route: IV, Drug form: INJ, ONCE, Stop date: 11/27/15 10:33:00 CDT Inactive 11/27/2015 [facility] lidocaine (ANES) Route: IV, Drug form: INJ, ONCE, Stop date: 11/27/15 10:33:00 CDT Inactive 11/27/2015 [facility] propofol (ANES) Route: IV, Drug form: INJ, ONCE, Stop date: 11/27/15 10:33:00 CDT Inactive 11/27/2015 [facility] LR 1000 mL INJ (ANES) Route: IV, Total Volume: 1,000, Start date: 11/27/15 9:46:00 CDT, Stop date: 11/27/15 10:46:00 CDT Inactive 11/27/2015 [facility] Calcium Chloride 0.0014 MEQ/ML / Potassium Chloride 0.004 MEQ/ML / Sodium Chloride 0.103 MEQ/ML / Sodium Lactate 0.028 MEQ/ML Injectable Solution 1,000 mL, Rate: 25 ml/hr, Infuse over: 40 hr, Route: IV, Dosing Weight 104.591 kg, Total Volume: 1,000, Start date: 11/27/15 9:03:00 CDT, Duration: 30 day, Stop date: 12/27/15 9:02:00 MANUFACTURING ASSISTANT Inactive 11/27/2015 [facility] Alprazolam 2 MG Oral Tablet [Xanax] 2 mg=1 tab, PO, Daily, 0 Refill(s) Active 11/19/2015 [facility] Allergies, Adverse Reactions, Alerts No Known [...] should be multiplied by the estimated BMI. [facility] CHEM PANEL Creatinine Lvl 0.91 0.50 - 1.40 11/19/2015 [facility] CHEM PANEL CO2 28 24 - 32 11/19/2015 [facility] CHEM PANEL Sodium Lvl 138 135 - 145 11/19/2015 [facility] CHEM PANEL Calcium Lvl 8.9 8.5 - 10.5 11/19/2015 [facility] CHEM PANEL Potassium Lvl 4.3 3.5 - 5.1 11/19/2015 [facility] CHEM PANEL Chloride Lvl 103 95 - 109 11/19/2015 [facility] CHEM PANEL BUN 15 7 - 22 11/19/2015 [facility] CHEM PANEL Glucose Lvl 89 70 - 99 11/19/2015 [facility] CHEM PANEL AGAP 11.3 10.0 - 20.0 11/19/2015 [facility] HEMATOLOGY Monocytes # 0.7 0.0 - 0.8 11/19/2015 [facility] HEMATOLOGY Lymphocytes # 3.0 1.0 - 5.5 11/19/2015 [facility] HEMATOLOGY Segs-Bands # 4.3 1.5 - 8.1 11/19/2015 [facility] HEMATOLOGY Basophils 0.3 0.0 - 1.0 11/19/2015 [facility] HEMATOLOGY Eosinophils # 0.1 0.0 - 0.5 11/19/2015 [facility] HEMATOLOGY Monocytes 8.8 2.0 - 12.0 11/19/2015 [facility] HEMATOLOGY Eosinophils 1.0 0.0 - 4.0 11/19/2015 [facility] HEMATOLOGY Lymphocytes 37.0 20.0 - 40.0 11/19/2015 [facility] HEMATOLOGY Segs 52.9 45.0 - 75.0 11/19/2015 [facility] HEMATOLOGY PT 13.1 12.0 - 14.7 11/19/2015 [facility] HEMATOLOGY INR 0.97 0.85 - 1.17 11/19/2015 [facility] HEMATOLOGY PTT 34.5 22.9 - 35.8 11/19/2015 [facility] HEMATOLOGY MCV 90.6 80.0 - 94.0 11/19/2015 [facility] HEMATOLOGY Hct 47.4 42.0 - 54.0 11/19/2015 [facility] HEMATOLOGY Hgb 16.0 14.0 - 18.0 11/19/2015 [facility] HEMATOLOGY RBC 5.23 4.70 - 6.10 11/19/2015 [facility] HEMATOLOGY WBC 8.0 3.7 - 10.4 11/19/2015 [facility] HEMATOLOGY MPV 8.8 7.4 - 10.4 11/19/2015 [facility] HEMATOLOGY Platelet 218 133 - 450 11/19/2015 [facility] HEMATOLOGY RDW 12.8 11.5 - 14.5 11/19/2015 [facility] HEMATOLOGY MCHC 33.8 32.0 - 36.0 11/19/2015 [facility] HEMATOLOGY MCH 30.7 27.0 - 31.0 11/19/2015 [facility] URINE AND STOOL UA Urobilinogen <=1.0 mg/dL 0.1 - 1.0 11/19/2015 [facility] URINE AND STOOL UA Blood Negative (11/19/15 10:09 AM) Negative 11/19/2015 [facility] URINE AND STOOL UA Bili Negative *NA* (11/19/15 10:09 AM) Negative 11/19/2015 [facility] URINE AND STOOL UA Glucose Negative mg/dL Negative mg/dL 11/19/2015 [facility] URINE AND STOOL UA Protein Negative mg/dL Negative mg/dL 11/19/2015 [facility] URINE AND STOOL UA Ketones Negative mg/dL Negative mg/dL 11/19/2015 [facility] URINE AND STOOL UA Mucus Few /LPF None Seen /LPF 11/19/2015 [facility] URINE AND STOOL UA RBC 1 0 - 2 11/19/2015 [facility] URINE AND STOOL UA WBC <1 0 - 5 11/19/2015 [facility] URINE AND STOOL UA Nitrite Negative (11/19/15 10:09 AM) Negative 11/19/2015 [facility] URINE AND STOOL UA Leuk Est Negative (11/19/15 10:09 AM) Negative 11/19/2015 [facility] URINE AND STOOL UA Sq Epi Occasional /LPF Few /LPF 11/19/2015 [facility] URINE AND STOOL UA pH 5.0 5.0 - 8.0 11/19/2015 [facility] URINE AND STOOL UA Spec Grav 1.020 <=1.030 11/19/2015 [facility] URINE AND STOOL UA Turbidity Clear (11/19/15 10:09 AM) Clear 11/19/2015 [facility] URINE AND STOOL UA Color Yellow *NA* (11/19/15 10:09 AM) Yellow 11/19/2015 [facility] Pathology Reports No Data Provided for [...] abnormalities. There is no other significant change. [id number] 12/22/2015 [facility] Abdomen AP DX Patient Name: LUISITO FONTENOT : 1975; Age: 39 years y/o Male MR: [id number] Study: Abdomen AP DX 11/27/2015 9:00 AM [...] punctate calculus overlying the left kidney. SL: [id number] 11/27/2015 [facility] Consultation Notes No Data Provided for This Section Discharge Summaries No Data Provided for This Section History and Physicals No Data Provided for This Section Vital Signs Vital Sign Value Date Comments Source Systolic (mm Hg) 127 11/27/2015 [facility] Diastolic (mm Hg) 78 11/27/2015 [facility] Systolic (mm Hg) 119 11/27/2015 [facility] Diastolic (mm Hg) 79 11/27/2015 [facility] Systolic (mm Hg) 125 11/27/2015 [facility] Diastolic (mm Hg) 81 11/27/2015 [facility] Respitory Rate 13 11/27/2015 [facility] Respitory Rate 16 11/27/2015 [facility] Respitory Rate 8 11/27/2015 [facility] BMI Calculated 33.08 11/19/2015 [facility] Weight 104.591 11/19/2015 [facility] Height 177.8 cm 11/19/2015 [facility] Heart Rate 55 11/19/2015 [facility] Temperature Oral (F) 98 F 11/19/2015 [facility] Encounters Location Location Details Encounter Type Encounter Number Reason For Visit Attending Provider ADM Date DC Date Status Source OD [id number] 780.60 - FEVER NOS LAST MORALES 07/14/2011 [id number] Outpatient [id number] [facility] 12/22/2015 12/23/2015 [facility] Procedures Procedure Code Date Perfomer Comments Source Vasectomy [id number] [facility] Assessment and Plan No Data Provided [...] Counseling No1 13-4 cigarrettes per week 11/19/2015 [facility] Family History No Data Provided for This Section Advance Directives No Data Provided for This Section Functional Status No Data Provided for This Section
[2018-11-10] MEDS ORDERED: DIGOXIN INJ 0.25 MG/ML 2 ML AMP IV NR (12:45)
[2018-11-10] MEDS ORDERED: AMIODARONE HCL 150MG 100 ML IV ONE (12:45)
[2018-11-10] MEDS ORDERED: AMIODARONE HCL 900 MG in DEXTROSE 5 % 500ML BOTTLE 500 ML IV SCH (13:00)
--- NOTE | 2018-11-10 13:08 | History and Physical ---
CHIEF COMPLAINT: "My heart is racing." HISTORY OF PRESENT ILLNESS: This is a 42-year-old white man, who presents to [facility] with complaints of his heart racing since yesterday afternoon around 04:00 p.m. The patient states he drank a cold nonalcoholic beverage yesterday, which he feels precipitated the palpitations in his chest. The patient denies any shortness of breath or chest pain, but states he does feel lightheaded. The patient states in June 2018, the patient had a similar episode, which prompted him to come to [facility] Emergency Room. The patient was found to be in atrial fibrillation, but he converted to sinus rhythm spontaneously. The patient was sent home on metoprolol tartrate as needed if he ever experienced palpitations. The patient states he did take two doses of oral metoprolol tartrate yesterday, which did not help his palpitations. On route to the emergency room today, he was found to be in atrial fibrillation with rapid ventricular rate with heart rate of 140. The patient's complete blood count as well as his comprehensive metabolic profile are unremarkable. His B-type natriuretic peptide level was slightly elevated to 106. Urine drug screen is completely negative. Urine toxicology completely negative. Chest film performed in the emergency room did not reveal any intrathoracic pathology. The patient stateshe does participate in binge alcohol drinking at times, but has not drank alcohol in over a week. He also denies drinking any energy drinks. The patient states he does drink one cup of coffee every morning. The patient is admitted for further evaluation and treatment. REVIEW OF SYSTEMS: GENERAL: Weight is stable. No fever or chills. HEENT: No headaches. No vision changes. CARDIOVASCULAR/RESPIRATORY: Complaints of lightheadedness as well as his heart racing. Denies any shortness of breath or chest pain. GI: Denies any nausea. : Denies any UTI or BPH symptoms. NEUROMUSCULAR: Denies any limb weakness or numbness, but does feel lightheaded. ALLERGIES: NO KNOWN DRUG ALLERGIES. MEDICATIONS: 1. Alprazolam 0.5 mg at bedtime p.r.n. insomnia/anxiety (the patient has not taken this medication in a few weeks). 2. Metoprolol tartrate 25 mg one p.o. daily as needed for heart racing. FAMILY HISTORY: Father had coronary artery bypass grafting at age 68. SOCIAL HISTORY: The patient is and lives with his . 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 He does smoke tobacco. He does drink alcohol socially. SURGICAL HISTORY: 1. Bilateral inguinal hernia repair. 2. Left inguinal hernia repair revision. 3. Vasectomy. PHYSICAL EXAMINATION: GENERAL: He is awake, alert, fluent, in no distress, very pleasant and cooperative on exam. His is at bedside. VITAL SIGNS: Blood pressure was 109/78 on arrival to the emergency room, currently it is 86/52 after receiving two doses of intravenous metoprolol. Heart rate currently ranges between 90-120, it is irregular; temperature 97.9; and respiratory rate 16. Height 5 feet 10 inches, weight is 230 pounds. BMI 33. INTEGUMENT: Skin is warm and dry. No pallor, jaundice, or diaphoresis. HEENT: Anicteric sclerae. Moist mucous membranes. NECK: Supple. CARDIOVASCULAR: Distant heart sounds. Tachycardic rate with irregular rhythm. LUNGS: No rales, no rhonchi or wheezes. ABDOMEN: Benign. EXTREMITIES: No edema or deformity. NEUROLOGIC: Intact. DIAGNOSIS: Atrial fibrillation with rapid ventricular rate. PLAN: 1. Recommend alcohol abstinence. 2. We will likely start intravenous amiodarone. 3. We will administer intravenous normal saline boluses if he continues to have hypotension. 4. Consult Cardiology. 5. Order 2D echocardiogram. 6. We will admit the patient to Intensive Care Unit. I spent 45 minutes in the care of this patient. MD MARGOT Porter/AMELIA /[id number] SERJIO
[2018-11-10] MEDS: APIXABAN 5 MG TABLET PO SCH (13:19)
[2018-11-10 14:01] VITALS: BP 109/73
[2018-11-10] MEDS: DILTIAZEM HCL ER 120 MG CAP PO SCH (14:39)
[2018-11-10 15:00] VITALS: BP 104/87
[2018-11-10 17:37] VITALS: BP 109/73
--- NOTE | 2018-11-10 19:00 | Consultation ---
DATE OF CONSULTATION: 11/10/2018 Cardiology Consultation REASON FOR CONSULTATION: Atrial fibrillation. HISTORY OF PRESENT ILLNESS: Mr. Schofield is a 42-year-old gentleman with history of paroxysmal symptomatic atrial fibrillation, multiple episodes in the past. He was seen in the emergency room at [facility] earlier this year, spontaneously converted to sinus rhythm. 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 He returns today with several hours of atrial fibrillation. He claims the onset was 4 p.m. yesterday after he drank a Slurpee. PAST MEDICAL HISTORY: Atrial fibrillation. SOCIAL HISTORY: The patient smokes. He drinks alcohol, but not excessively. He is accompanied by his . 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 FAMILY HISTORY: Significant for coronary artery disease in his father, status post coronary bypass. REVIEW OF SYSTEMS: Negative except as dictated in the history of present illness. PHYSICAL EXAMINATION: VITAL SIGNS: Afebrile, heart rate is 143, and blood pressure is 108/70. CARDIOVASCULAR: Irregularly irregular rhythm. No murmurs. LUNGS: Clear to auscultation bilaterally. ABDOMEN: Soft. Bowel sounds heard adequately. EXTREMITIES: 2+ pedal pulses. DIAGNOSTIC DATA: Electrocardiogram shows atrial fibrillation. Chest x-ray, EKG were personally reviewed. ASSESSMENT: Symptomatic rapid atrial fibrillation, paroxysmal. RECOMMENDATIONS: Anticoagulation with apixaban, rate control with amiodarone and calcium channel aj. The patient is converted into sinus rhythm. May be discharged home with close followup in the office. Thyroid function test as well as echocardiogram has been ordered. I will review the same. I thank, Dr. Benoit, for this consultation. MD VISHNU Tirado/CROWL /[id number]
[2018-11-10 20:00] VITALS: BP 105/78
[2018-11-10 21:00] VITALS: BP 105/78
[2018-11-10 21:00] LABS: CREATINE KINASE MB 0.7 ng/mL (0-5.0)
[2018-11-10] MEDS ORDERED: ACETAMINOPHEN 325 MG TAB PO PRN (21:15)
[2018-11-11 00:16] VITALS: BP 116/100
[2018-11-11 04:19] VITALS: BP 100/57
[2018-11-11 05:18] LABS: BASOPHILS % 0.4 % (0.0-1.0); EOSINOPHILS # (AUTO) 0.1 (0.0-0.4); EOSINOPHILS % 1.8 % (0.0-6.0); HEMATOCRIT 39.9 % (38.2-49.6); HEMOGLOBIN 13.5 g/dL (14.0-18.0); LYMPHOCYTES # (AUTO) 1.7 (1.0-3.2); LYMPHOCYTES % 24.2 % (18.0-39.1); MEAN CORPUSCULAR HEMOGLOBIN 31.4 pg (28-32); MEAN CORPUSCULAR HGB CONC 33.8 g/dL (31-35); MEAN CORPUSCULAR VOLUME 92.8 fL (81-99); MONOCYTES # (AUTO) 0.8 (0.2-0.8); MONOCYTES % 11.7 % (4.4-11.3); NEUTROPHILS # (AUTO) 4.4 (2.1-6.9); NEUTROPHILS % 61.5 % (38.7-80.0); PLATELET COUNT 200 x10e3/uL (140-360); RED CELL DISTRIBUTION WIDTH 12.5 % (11.7-14.4)
[2018-11-11 05:51] LABS: ALANINE AMINOTRANSFERASE 21 IU/L (0-55); ALBUMIN 3.4 g/dL (3.5-5.0); ALBUMIN/GLOBULIN RATIO 1.3 (0.8-2.0); ALKALINE PHOSPHATASE 59 IU/L (40-150); ANION GAP 12.9 mmol/L (8-16); BLOOD UREA NITROGEN 9 mg/dL (7-26); BUN/CREATININE RATIO 10 (6-25); CALCIUM 8.7 mg/dL (8.4-10.2); CARBON DIOXIDE 23 mmol/L (22-29); CHLORIDE 108 mmol/L (98-107); CHOL/HDL RATIO 5.5 (3.9-4.7); CHOLESTEROL 169 MD/DL (0-199); EST GLOMERULAR FILTRATION RATE > 60 ML/MIN (60-); GLUCOSE 94 mg/dL (74-118); HDL CHOLESTEROL 31 MG/DL (40-60); LDL CHOLESTEROL 112 MG/DL (60-130); POTASSIUM 3.9 mmol/L (3.5-5.1); SODIUM 140 mmol/L (136-145); TRIGLYCERIDES 129 MG/DL (0-149)
[2018-11-11 06:05] LABS: CREATINE KINASE MB 0.4 ng/mL (0-5.0)
--- NOTE | 2018-11-11 07:29 | NUR ---
Report given to oncoming nurse Tala, walking round done.
[2018-11-11 08:05] VITALS: BP 105/63
[2018-11-11] MEDS: DILTIAZEM HCL ER 120 MG CAP PO SCH (08:12)
[2018-11-11] MEDS: APIXABAN 5 MG TABLET PO SCH (08:12)
[2018-11-11] MEDS: SODIUM CHLORIDE 0.9% 1000ML 1,000 ML IV SCH (08:25)
--- NOTE | 2018-11-11 12:34 | Progress Note ---
DATE: Cardiology Progress Note SUBJECTIVE: The patient is without any new complaints. He states that he feels much much better. He denies any palpitations, shortness of breath, or chest pain. He does endorse occasional dizziness. OBJECTIVE: VITAL SIGNS: Temperature 97.9, pulse 61, respiratory rate 17, blood pressure 105/63, and oxygen saturation 96% on room air. GENERAL: Alert and oriented x3, resting comfortably in bed. Does not appear to be in any acute distress. NECK: Supple. No JVD noted. LUNGS: Clear to auscultation throughout. No wheezing. No rhonchi or crackles. ABDOMEN: Soft and nontender. CARDIOVASCULAR: Regular rate and rhythm. No murmurs. No gallops. CARDIOVASCULAR MEDICATIONS: Amiodarone 200 mg p.o. b.i.d., digoxin 0.5 IV one, Eliquis 5 mg p.o. b.i.d., and diltiazem 240 mg p.o. daily. LABORATORY DATA: WBC 7.15, hemoglobin 13.5, hematocrit 39.9, and platelets 200. Sodium 140, potassium 3.9, BUN 9, and creatinine 0.9. Troponin 0.0015. TSH 4.275. TELEMETRY: Sinus bradycardia. ASSESSMENT: Symptomatic atrial fibrillation, paroxysmal with rapid ventricular rate. Now in sinus rhythm. RECOMMENDATIONS: Okay to discharge this patient from a cardiac standpoint. The patient has been issued prescriptions for continuation of therapy. The patient is to follow up with Dr. Storm within the course of the week. No new concerns presented at this time. We will continue to follow this patient very closely. Dictated by Marianne Jones, KASIE Shay Storm MD JWV/MODL /[id number]
[2018-11-11] MEDS ORDERED: eliquis PO (12:45)
[2018-11-11] MEDS ORDERED: DILTIAZEM 24HR120 M1 PO (12:45)
[2018-11-11] MEDS ORDERED: AMIODARONE HCL200 MG PO (12:46)
[2018-11-11 12:55] VITALS: BP 107/67
--- NOTE | 2018-11-11 12:59 | Discharge Summary ---
ADMIT DIAGNOSIS: Symptomatic rapid atrial fibrillation (paroxysmal). DISCHARGE DIAGNOSIS: Paroxysmal atrial fibrillation. HOSPITAL COURSE: This is a 42-year-old white man, who initially was admitted to [facility] with a diagnosis of atrial fibrillation, rapid ventricular rate. This patient has known history of paroxysmal atrial fibrillation. During this hospitalization, he converted to sinus rhythm. The patient was on intravenous amiodarone drip when he converted to sinus rhythm. The patient was seen by his ampoule examiner during this hospitalization, Dr. Shay Storm. The patient had echocardiogram done during this hospitalization, which revealed left ventricular fraction of 45%, but this will likely be repeated once the patient is in sinus rhythm. The patient's lightheadedness and chest palpitations resolved during his hospital stay. During this hospitalization, the patient is found to have an LDL cholesterol of 112 mg/dL. The patient's TSH was normal at 4.275. The patient underwent serial cardiac enzymes during this hospitalization, which were unremarkable. The patient was hypotensive on admission but improved with intravenous fluids. Also improved once he regained sinus rhythm. CONDITION ON DISCHARGE: Stable. DISCHARGE MEDICATIONS: 1. Apixaban 5 mg b.i.d. 2. Diltiazem ER 120 mg daily. 3. Amiodarone 200 mg b.i.d. FOLLOWUP: The patient is instructed to follow up with Dr. Shay Storm within two weeks. Alcohol abstinence is highly recommend to the patient. MD DEJUAN PorterO/CROWL /[id number] cc: Shay Storm MD
[2018-11-11] MEDS ORDERED: AMIODARONE HCL 200 MG TAB PO SCH (17:00)
== END 2018-11-11 13:30 | disposition home or self-care (01) | DRG 310 ==
LOC: ER 09:48 → ERHOLD 12:31 → IMCU 13:48
PROVIDERS: ADMIT Internal Medicine; ATTEND Internal Medicine
DX: I48.0 Paroxysmal atrial fibrillation (principal); Z79.01 Long term (current) use of anticoagulants; I95.9 Hypotension, unspecified; F17.210 Nicotine dependence, cigarettes, uncomplicated; F10.10 Alcohol abuse, uncomplicated
CPT/HCPCS: 36415; 71045; 80053; 80061; 80307; 82550; 82553; 83518; 83735; 83880; 84443; 84484; 85025; 85379; 85610; 85730; 87070; 93005; 93306; 99285; J1160; J1650; J7030

== ENCOUNTER → 2019-01-09 | Day surgery (SDC) | payer BC ==
[~2019-01-09] VITALS: Ht 177.8 cm; Wt 104.3 kg
[~2019-01-09] MED LIST changes: +AMIODARONE HCL200 MG PO; +BENZOCAINE 20% SPR 60 ML CAN ONE; +DILTIAZEM 24HR120 M1 PO; +FENTANYL CITRATE/PF 100MCG/2 ML INJ ONE; +LIDOCAINE HCL 2% LOCAL INJ 5 ML SDV VIAL INJ ONE; +MIDAZOLAM HCL 2 MG/2 ML VIAL ONE; +PROPOFOL IV EMULSION 10 MG/ML 20 ML VIAL ONE; +SODIUM CHLORIDE 0.9% 1000ML 1,000 ML ONE; +eliquis PO
[2019-01-09 11:06] LABS: BASOPHILS % 0.1 % (0.0-1.0); EOSINOPHILS # (AUTO) 0.1 (0.0-0.4); EOSINOPHILS % 1.6 % (0.0-6.0); HEMATOCRIT 44.2 % (38.2-49.6); HEMOGLOBIN 15.6 g/dL (14.0-18.0); LYMPHOCYTES # (AUTO) 2.8 (1.0-3.2); LYMPHOCYTES % 37.6 % (18.0-39.1); MEAN CORPUSCULAR HEMOGLOBIN 31.6 pg (28-32); MEAN CORPUSCULAR HGB CONC 35.3 g/dL (31-35); MEAN CORPUSCULAR VOLUME 89.7 fL (81-99); MONOCYTES # (AUTO) 0.7 (0.2-0.8); MONOCYTES % 9.3 % (4.4-11.3); NEUTROPHILS # (AUTO) 3.9 (2.1-6.9); NEUTROPHILS % 51.1 % (38.7-80.0); PLATELET COUNT 276 x10e3/uL (140-360); RED BLOOD COUNT 4.93 x10e6/uL (4.3-5.7); RED CELL DISTRIBUTION WIDTH 12.1 % (11.7-14.4)
[2019-01-09 11:27] LABS: ALANINE AMINOTRANSFERASE 28 IU/L (0-55); ALBUMIN 4.1 g/dL (3.5-5.0); ALBUMIN/GLOBULIN RATIO 1.1 (0.8-2.0); ALKALINE PHOSPHATASE 79 IU/L (40-150); ANION GAP 12.1 mmol/L (8-16); BLOOD UREA NITROGEN 15 mg/dL (7-26); BUN/CREATININE RATIO 18 (6-25); CALCIUM 9.4 mg/dL (8.4-10.2); CARBON DIOXIDE 23 mmol/L (22-29); CHLORIDE 105 mmol/L (98-107); CREATININE, SERUM 0.83 mg/dL (0.72-1.25); EST GLOMERULAR FILTRATION RATE > 60 ML/MIN (60-); GLUCOSE 99 mg/dL (74-118); POTASSIUM 4.1 mmol/L (3.5-5.1); SODIUM 136 mmol/L (136-145)
[2019-01-09 12:52] VITALS: BP 117/75
--- NOTE | 2019-01-09 13:11 | NUR ---
1221-In room for VIRY 1235-Hurricaine spray x1 1236-Hurricaine spray x1 1243-MD arrived/time out completed 1245-VIRY probe in 1249-VIRY probe out/VIRY complete
[2019-01-09 13:18] VITALS: BP 117/81
[2019-01-09 13:21] VITALS: BP 117/81
== END | disposition home or self-care (01) ==
LOC: CATH LAB 10:57
PROVIDERS: ATTEND Internal Medicine Interventional Cardiology
DX: I20.8 Other forms of angina pectoris (principal); I73.9 Peripheral vascular disease, unspecified; R09.89 Other specified symptoms and signs involving the circulatory and respiratory systems; I48.0 Paroxysmal atrial fibrillation; Z01.812 Encounter for preprocedural laboratory examination
CPT/HCPCS: 36415; 80053; 85025; 93320; 93325; J2001; J2250; J2704; J3010; J7030; 93307; 93312

== ENCOUNTER 2023-11-18 10:30 | Emergency (ER) | payer OTHER ==
[~2023-11-18] VITALS: Ht 177.8 cm; Wt 104.3 kg
[~2023-11-18 10:30] MED LIST changes: -BENZOCAINE 20% SPR 60 ML CAN ONE; +CYCLOBENZAPRINE10 MG PO; -FENTANYL CITRATE/PF 100MCG/2 ML INJ ONE; -LIDOCAINE HCL 2% LOCAL INJ 5 ML SDV VIAL INJ ONE; -MIDAZOLAM HCL 2 MG/2 ML VIAL ONE; +NAPROXEN250 MG PO; -PROPOFOL IV EMULSION 10 MG/ML 20 ML VIAL ONE; -SODIUM CHLORIDE 0.9% 1000ML 1,000 ML ONE
[2023-11-18 10:38] VITALS: PULSE 56; RESP 16; TEMP 98.2; O2SAT 100
[2023-11-18] MEDS: METHOCARBAMOL 750 MG TAB PO ONE (10:50)
[2023-11-18] MEDS: KETOROLAC TROMETHAMINE 60 MG/2 ML VIAL IM ONE (10:51)
[2023-11-18] MEDS ORDERED: ULTRAM 50MG50 MG PO (10:52)
[2023-11-18] MEDS ORDERED: METHOCARBAMOL750 MG PO (10:52)
== END 2023-11-18 11:06 | disposition home or self-care (01) ==
LOC: ER 10:34
DX: M54.50 Low back pain, unspecified (principal); N50.811 Right testicular pain; I48.91 Unspecified atrial fibrillation; F41.9 Anxiety disorder, unspecified; Z87.19 Personal history of other diseases of the digestive system; Z87.442 Personal history of urinary calculi
CPT/HCPCS: 99283; J1885